=== PATIENT | female | born 1950 | race Two or more races ===

== ENCOUNTER 2021-01-20 10:07 | Outpatient (CLI) | payer OTHER | END 2021-01-20 10:15 | disposition home or self-care (01) | LOC: RAD 10:07 | PROVIDERS: ATTEND Orthopaedic Surgery | DX: S82.035A Nondisplaced transverse fracture of left patella, initial encounter for closed fracture (principal); Y99.8 Other external cause status ==

== ENCOUNTER 2021-02-13 16:55 | Outpatient (CLI) | payer OTHER | END 2021-02-13 16:58 | disposition home or self-care (01) | LOC: LAB 16:55 | PROVIDERS: ATTEND Orthopaedic Surgery | DX: E56.1 Deficiency of vitamin K (principal) ==